=== PATIENT | male | born 1990 | race Caucasian/White ===

== ENCOUNTER 2017-08-10 01:14 | Emergency (ER) | payer SELFPAY ==
[2017-08-10] MEDS ORDERED: NS 0.9% 1000 ML* 1,000 ML IV ONE (01:18)
[2017-08-10] MEDS ORDERED: Ondansetron INJ* 2 MG/ML VIAL IV ONE (01:18)
--- NOTE | 2017-08-10 06:35 | ED ---
Shelby Barnes Emily, scribed for Balbir Quick MD on 08/10/17 at 0123 . Substance Abuse/Use - HPI Summary HPI Summary: Unable to obtain complete HPI due to level 5 caveat, ETOH intoxication. This patient is a 26 year old M BIBA to [facility] with a chief complaint of ETOH intoxication that occurred [employer]. Per police, pt was in a friends home and asleep. Pt woke up screaming and vomiting. Pt arrived actively vomiting. - History Of Current Complaint Stated Complaint: ETOH Time Seen by Provider: 08/10/17 01:17 Hx Obtained From: EMS Hx From Patient Unobtainable Due To: Other - ETOH intoxication Associated Signs And Symptoms: Vomiting - Allergies/Home Medications Allergies/Adverse Reactions: Allergies Allergy/AdvReac Type Severity Reaction Status Date / Time Unable to Assess Allergy Verified 08/10/17 01:25 PMH/Surg Hx/FS Hx/Imm Hx Previously Healthy: No - Unable to obtain PMHx due to level 5 caveat, ETOH intoxication Review of Systems - ROS Summary Review of Systems Summary: Unable to obtain ROS due to level 5 caveat, ETOH intoxication. Positive: Vomiting All Other Systems Reviewed And Are Negative: No Physical Exam - Summary Physical Exam Summary: Appearance: Well appearing, no pain distress Skin: warm, dry, reflects adequate perfusion, abrasion to L side Head/face: normal Eyes: EOMI, FESTUS ENT: normal Neck: supple, non-tender Respiratory: CTA, breath sounds present Cardiovascular: RRR, pulses symmetrical Abdomen: non-tender, soft Bowel: present Musculoskeletal: normal, strength/ROM intact Neuro: normal, sensory motor intact Triage Information Reviewed: Yes Vital Signs On Initial Exam: Initial Vitals Temp Pulse Resp BP Pulse Ox 36.2 C 63 14 122/54 100 08/10/17 01:19 08/10/17 01:19 08/10/17 01:19 08/10/17 01:19 08/10/17 01:19 Vital Signs Reviewed: Yes Diagnostics - Vital Signs Vital Signs Temp Pulse Resp BP Pulse Ox 08/10/17 05:20 77 16 103/46 100 08/10/17 03:21 68 16 122/49 100 08/10/17 01:19 36.2 C 63 14 122/54 100 - Laboratory Lab Statement: Any lab studies that have been ordered have been reviewed, and results considered in the medical decision making process. Re-Evaluation - Re-Evaluation First Eval Re-Evaluation Time: 03:10 Change: Unchanged Comment: Pt reports that he is cold. Pt rolled over and fell back asleep after receiving a blanket. Second Eval Re-Evaluation Time: 06:12 Change: Improved Comment: Pt demonstrates functional capactiy, has no headache. Has a small abrasion to L side of face. Course/Dx - Course Course Of Treatment: We were unable to establish the degree of trauma and attempted to obtain CT. Pt would curl up while attempting the scan so we closely monitored instead. After several hours of observation he awoke and demonstrates functional capacity with clear speech, steady gait and nl cognition. He does not c/o any headache etc. D/C with safe ride. - Diagnoses Provider Diagnoses: Alcohol intoxication, Closed head injury, Facial abrasion Discharge - Discharge Plan Condition: Good Disposition: HOME Prescriptions: Ondansetron [Zofran Odt] 4 mg PO TID PRN #6 tab.rapdis PRN Reason: Nausea Patient Education Materials: Head Injury (ED), Abuse of Alcohol (ED) Referrals: [facility] [Provider Group] Additional Instructions: dress abrasion with bacitracin ointment twice a day until healed. Return with severe headache, vomiting, worse or other concerns. NEVER drink to excess. Do not drive or use machinery today. [facility] Saturday. The documentation as recorded by the Shelby noe Emily accurately reflects the service I personally performed and the decisions made by me, Balbir Quick MD.
[2017-08-10 06:45] VITALS: BP 110/53
== END 2017-08-10 06:44 | disposition home or self-care (01) ==
LOC: ED 01:14
DX: F10.129 Alcohol abuse with intoxication, unspecified (principal); S09.90XA Unspecified injury of head, initial encounter; S00.81XA Abrasion of other part of head, initial encounter; X58.XXXA Exposure to other specified factors, initial encounter; Y92.9 Unspecified place or not applicable
CPT/HCPCS: 96361; 96374; 99284; J2405